=== PATIENT | male | born 1940 ===

== ENCOUNTER → 2017-04-06 | Outpatient (CLI) | payer SELFPAY ==
--- NOTE | 2017-04-06 11:33 | CT ---
HISTORY: Screening. Family history of heart disease. Study: Cardiac calcium scoring. Technique: Multiple axial images of the chest were obtained on a [address] from the main pulmonary artery to the base of the heart. Noncontrast evaluation of the heart was performed for calcium scoring with prospective gating. Findings: A total calcium score of 873 is observed which is between the 75th and 90th percentile for males above the age of 70. This score implies extensive atherosclerotic plaque with high likelihood of at least 1 significant coronary narrowing. LM: 102 LAD: 144 LCX: 17 RCA: 610 Extracardiac findings: No pathologically enlarged lymphadenopathy can be observed. No significant pericardial effusion can be identified. The visualized portions of the lung parenchyma are unremarkable. No lytic or blast ic lesions can be identified within the visualized bony thorax. IMPRESSION: A total calcium score of 873 is observed which is between the 75th and 90th percentile for males abo ve the age of 70. This score implies extensive atherosclerotic plaque with high likelihood of at tonny st 1 significant coronary narrowing. Reported By:
== END ==
LOC: RAD 09:10
PROVIDERS: ATTEND Internal Medicine
DX: Z13.6 Encounter for screening for cardiovascular disorders (principal)

== ENCOUNTER → 2017-12-23 | Outpatient (CLI) | payer OTHER ==
--- NOTE | 2017-12-26 08:06 | MRI ---
HISTORY: Chronic low back pain Study: MRI lumbar spine without contrast Comparison: None Technique: Multiplanar multi-sequence MRI of the lumbar spine was obtained. Sagittal T1, sagittal T2 , and stir weighted images, axial T1, and axial T2 images were obtained. Findings: The lumbar spine demonstrates normal alignment with the expected signal characteristics of the bone m arrow. The conus of the cord terminates normally. T12 -- L1: No evidence for compressive disc disease. The neural foramina are patent. The joints are n ormal. L1 -- L2: No evidence for compressive disc disease. The neural foramina are patent. The joints are no rmal. L2 -- L3: No evidence for compressive disc disease. The neural foramina are patent. Bilateral facet a rthropathy is present. L3 -- L4: Broad-based disc protrusion contributes along with pedicular shortening, ligamentous hypert rophy, and facet arthropathy to a relatively severe spinal stenosis with severe lateral recess and fo raminal narrowing on the left and mild lateral recess narrowing on the right. L4 -- L5: There is disc degeneration with broad-based disc protrusion which contributes along with pe dicular shortening, ligamentous hypertrophy and facet arthropathy to a severe spinal stenosis with ma rked lateral recess and foraminal narrowing bilaterally left worse than right. L5 -- S1: Broad-based disc protrusion contributes along with spondylitic change and pedicular shorten ing and facet arthropathy to a spinal stenosis with significant lateral recess and foraminal narrowin g bilaterally. There is a small annular rent present. IMPRESSION: As above Reported By:
== END | disposition home or self-care (01) ==
LOC: RAD 14:32
PROVIDERS: ATTEND Internal Medicine Rheumatology
DX: I83.10 Varicose veins of unspecified lower extremity with inflammation (principal); R20.0 Anesthesia of skin; M51.26 Other intervertebral disc displacement, lumbar region; M51.27 Other intervertebral disc displacement, lumbosacral region
CPT/HCPCS: 72148